=== PATIENT | female | born 1970 | race Caucasian/White ===

== ENCOUNTER 2017-12-26 19:46 | Emergency (ER) | payer MEDICAID ==
[~2017-12-26] VITALS: Ht 152.4 cm; Wt 66.4 kg
[2017-12-26 19:50] VITALS: Ht 152.4 cm; Wt 66.4 kg
[2017-12-26 20:27] LABS: microscopic required? NO
[2017-12-26 20:41] LABS: BASOPHIL % 1.1 % (0-2); PLATELET COUNT 362 x10^3mcL (130-400); RED CELL DISTRIBUTION WIDTH 13.2 % (11.5-14.5)
[2017-12-26 20:44] LABS: urine erythrocyte NEGATIVE (NEGATIVE)
[2017-12-26 20:46] LABS: CALCIUM 9.3 mg/dL (8.5-10.1); CARBON DIOXIDE 29.4 mmol/L (21-32); CHLORIDE SERUM 97 mmol/L (98-107); CREATININE SERUM 0.9 mg/dL (0.6-1.0); GFR1 > 60 mL/min; GLUCOSE SERUM 283 mg/dL (74-106); POTASSIUM SERUM 3.8 mmol/L (3.5-5.1); SODIUM SERUM 133 mmol/L (136-145)
[2017-12-26 20:50] LABS: ALBUMIN 3.7 g/dL (3.4-5.0); ALKALINE PHOSPHATASE 155 U/L (46-116); ALT/SGPT 38 U/L (14-59); BILIRUBIN TOTAL 0.3 mg/dL (0.20-1.00); LIPASE 178 IU/L (73-393); TOTAL PROTEIN, SERUM 8.2 g/dL (6.4-8.2)
[2017-12-26 21:05] LABS: AST/SGOT 27 U/L (15-37)
[2017-12-26 21:37] VITALS: BP 100/60
== END 2017-12-26 21:37 | disposition home or self-care (01) ==
LOC: ED 19:46
PROVIDERS: Emergency Medicine
DX: K59.00 Constipation, unspecified (principal); K29.70 Gastritis, unspecified, without bleeding; E11.9 Type 2 diabetes mellitus without complications; E78.00 Pure hypercholesterolemia, unspecified
CPT/HCPCS: J1885

== ENCOUNTER 2018-05-12 08:22 | Emergency (ER) | payer MEDICAID ==
[~2018-05-12] VITALS: Ht 152.4 cm; Wt 63.5 kg
[2018-05-12 11:03] VITALS: BP 111/65
== END 2018-05-12 11:19 | disposition home or self-care (01) ==
LOC: ED 08:22
DX: M54.9 Dorsalgia, unspecified (principal); R39.198 Other difficulties with micturition; E11.9 Type 2 diabetes mellitus without complications; E78.00 Pure hypercholesterolemia, unspecified

== ENCOUNTER 2018-10-10 21:53 | Emergency (ER) | payer MEDICAID ==
[~2018-10-10] VITALS: Ht 162.6 cm; Wt 63.5 kg
[2018-10-10 21:58] VITALS: Ht 162.6 cm; Wt 63.5 kg
[2018-10-10 22:44] LABS: BASOPHIL % 0.3 % (0-2); PLATELET COUNT 287 x10^3mcL (130-400); RED CELL DISTRIBUTION WIDTH 12.7 % (11.5-14.5)
[2018-10-10 22:50] LABS: CALCIUM 9.2 mg/dL (8.5-10.1); CARBON DIOXIDE 29.1 mmol/L (21-32); CHLORIDE SERUM 97 mmol/L (98-107); CREATININE SERUM 0.7 mg/dL (0.6-1.0); GFR1 > 60 mL/min; GLUCOSE SERUM 392 mg/dL (74-106); SODIUM SERUM 134 mmol/L (136-145)
[2018-10-10 22:51] LABS: ALKALINE PHOSPHATASE 169 U/L (46-116); ALT/SGPT 26 U/L (14-59); AST/SGOT 12 U/L (15-37); BILIRUBIN TOTAL 0.4 mg/dL (0.20-1.00); TOTAL PROTEIN, SERUM 7.3 g/dL (6.4-8.2)
[2018-10-10 22:52] LABS: ALBUMIN 3.1 g/dL (3.4-5.0)
[2018-10-10 23:23] LABS: UA SPECIFIC GRAVITY <=1.005 (1.005-1.035); microscopic required? YES; urine erythrocyte 1+ (NEGATIVE)
[2018-10-11 02:00] VITALS: BP 103/58
== END 2018-10-11 02:00 | disposition home or self-care (01) ==
LOC: ED 21:53
PROVIDERS: Emergency Medicine
DX: N39.0 Urinary tract infection, site not specified (principal); E11.65 Type 2 diabetes mellitus with hyperglycemia; E78.00 Pure hypercholesterolemia, unspecified
CPT/HCPCS: 82962; J0696; J1815; J1885; J2405; J7030

== ENCOUNTER 2018-12-08 02:10 | Emergency (ER) | payer MEDICAID ==
[~2018-12-08] VITALS: Ht 154.9 cm; Wt 64.4 kg
[2018-12-08 02:21] VITALS: Ht 154.9 cm; Wt 64.4 kg
[2018-12-08 06:21] VITALS: BP 132/89
== END 2018-12-08 06:21 | disposition home or self-care (01) ==
LOC: ED 02:10
DX: K08.89 Other specified disorders of teeth and supporting structures (principal); E11.9 Type 2 diabetes mellitus without complications; E78.00 Pure hypercholesterolemia, unspecified
CPT/HCPCS: J1885

== ENCOUNTER 2019-02-16 07:08 | Emergency (ER) | payer MEDICAID ==
[~2019-02-16] VITALS: Ht 152.4 cm; Wt 63.0 kg
[2019-02-16 07:37] VITALS: Ht 152.4 cm; Wt 63.0 kg
[2019-02-16 08:28] VITALS: BP 109/66
== END 2019-02-16 08:28 | disposition home or self-care (01) ==
LOC: ED 07:08
DX: H01.005 Unspecified blepharitis left lower eyelid (principal); E11.9 Type 2 diabetes mellitus without complications; E78.00 Pure hypercholesterolemia, unspecified